=== PATIENT | female | born 1975 | race Caucasian/White ===

== ENCOUNTER 2018-11-16 05:27 | Observation (INO) | payer BC ==
[2018-11-16] MEDS ORDERED: ROCURONIUM 50 MG INJ ×2 (07:01→07:48)
[2018-11-16] MEDS ORDERED: FENTAnyl 50 MCG/ML VIAL (07:01)
[2018-11-16] MEDS ORDERED: PROPOFOL 0 ML (07:01)
[2018-11-16] MEDS ORDERED: SCOPOLAMINE 1.5 MG PATCH (07:01)
[2018-11-16] MEDS ORDERED: LIDOCAINE 2% (SDV) 5 ML INJ (07:01)
[2018-11-16] MEDS ORDERED: SUCCINYLCHOLINE CHLORIDE 100 MG/5 ML SYG IV (07:01)
[2018-11-16] MEDS ORDERED: MIDAZOLAM 1 MG/ML 2 ML INJ (07:01)
[2018-11-16] MEDS ORDERED: ROPIVACAINE 0.5 % 30 ML VIAL ×2 (07:06→11:43)
[2018-11-16] MEDS ORDERED: CEFAZOLIN 1 GM INJ ×3 (07:33→11:31)
[2018-11-16] MEDS ORDERED: ONDANSETRON 4 MG INJ (07:42)
[2018-11-16] MEDS ORDERED: FAMOTIDINE 20 MG INJ (07:42)
[2018-11-16] MEDS ORDERED: DEXAMETHASONE 4 MG/ML 5 ML INJ (07:42)
[2018-11-16] MEDS ORDERED: HYDROmorphONE 2 MG/ML SYG (08:54)
[2018-11-16] MEDS ORDERED: PROPOFOL 100 ML (09:35)
[2018-11-16] MEDS ORDERED: ESMOLOL 10 ML (09:55)
[2018-11-16] MEDS ORDERED: POVIDONE IODINE 10% 28.4 GM OINT (11:44)
[2018-11-16] MEDS ORDERED: HYDROmorphONE 1 MG/5 ML IV SYRINGE IV ×3 (12:00)
[2018-11-16] MEDS ORDERED: FENTAnyl 50 MCG/ML VIAL IV (12:00)
[2018-11-16] MEDS ORDERED: MEPERIDINE 25 MG INJ IV (12:00)
[2018-11-16] MEDS ORDERED: DIPHENHYDRAMINE 50 MG INJ IV (12:00)
[2018-11-16] MEDS ORDERED: PROCHLORPERAZINE 10 MG INJ IV (12:00)
[2018-11-16] MEDS ORDERED: SUGAMMADEX SODIUM 200 MG/2 ML VIAL IV (12:04)
[2018-11-16] MEDS ORDERED: DIPHENHYDRAMINE 25 MG CAP PO (13:00)
[2018-11-16] MEDS ORDERED: BISACODYL 10 MG SUPP PR (13:00)
[2018-11-16] MEDS ORDERED: HYDROmorphONE 0.2 MG/ML PCA IV (13:00)
[2018-11-16] MEDS ORDERED: morphine 10 MG INJ IV (13:00)
[2018-11-16] MEDS: CEFAZOLIN 1 GM/50 ML (PMX) 50 ML IVPB ×2 (13:38→20:23)
[2018-11-16] MEDS: HYDROmorphONE 0.2 MG/ML PCA IV (13:50)
[2018-11-16] MEDS: ONDANSETRON 4 MG INJ IV ×3 (14:01→20:31)
[2018-11-16] MEDS: ACETAMINOPHEN 325 MG TAB PO (14:01)
[2018-11-16] MEDS: SOD CHLORIDE 0.9% 1,000 ML IV (15:40)
[2018-11-16] MEDS: LACTATED RINGER'S 1,000 ML IV (19:30)
[2018-11-17] MEDS: SOD CHLORIDE 0.9% 1,000 ML IV ×2 (00:20→08:39)
[2018-11-17] MEDS: CEFAZOLIN 1 GM/50 ML (PMX) 50 ML IVPB (04:47)
[2018-11-17] MEDS: LACTATED RINGER'S 1,000 ML IV (07:30)
[2018-11-17] MEDS: SENNA/DOCUSATE NA (8.6MG/50MG) TAB PO (08:29)
[2018-11-17] MEDS: OXYCODONE/ACETAMINOPHEN (5/325) TAB PO (10:00)
[2018-11-17] MEDS ORDERED: RIVAROXABAN 10 MG TABLET PO (17:55)
[2018-11-18] MEDS ORDERED: MAGNESIUM HYDROXIDE 30ML CUP PO (21:00)
== END 2018-11-17 13:05 | disposition home or self-care (01) ==
LOC: SDS 05:27 → REC 12:39 → MS1 14:52
DX: M19.171 Post-traumatic osteoarthritis, right ankle and foot (principal); M24.071 Loose body in right ankle; E66.09 Other obesity due to excess calories; Z68.37 Body mass index [BMI] 37.0-37.9, adult
CPT/HCPCS: 29898; 73610-RT; 97116; 97161